=== PATIENT | female | born 1995 | race Hispanic/Latino ===

== ENCOUNTER 2020-03-15 11:45 | Emergency (ER) | payer BC ==
--- NOTE | 2020-03-15 12:08 | Event Note ---
ED Screening Note Date of service: 03/15/20 Time: 12:06 ED Screening Note: 25-year-old female presents to the emergency room stating she has nausea vomiting abdominal pain and vaginal bleeding. Patient states she thinks she was . She reports that she did not have any vaginal bleeding. This initial assessment/diagnostic orders/clinical plan/treatment(s) is/are subject to change based on patients health status, clinical progression and re- assessment by fellow clinical providers in the ED. Further treatment and workup at subsequent clinical providers discretion. Patient/guardian urged not to elope from the ED as their condition may be serious if not clinically assessed and managed. Initial orders include:
[2020-03-15 12:10] VITALS: BP 97/60
[2020-03-15] MEDS ORDERED: ONDANSETRON 4 MG ODT TAB ONE (12:10)
[2020-03-15] MEDS ORDERED: ONDANSETRON 4 MG ODT TAB PO ONE (12:12)
--- NOTE | 2020-03-15 13:07 | Emergency Department Report ---
ED Female HPI - General Chief complaint: Nausea/Vomiting/Diarrhea Stated complaint: NAUSEA,VOMITING Time Seen by Provider: 03/15/20 12:57 Source: patient Mode of arrival: Wheelchair Limitations: No Limitations - History of Present Illness Initial comments: 25-year-old female presents emerged department complaining of nausea and vomiting for 4 days with vaginal bleeding and suprapubic pain after being 6 weeks late. States that her symptoms started about 6 6 days ago and the bleeding was a bright color and then progressed to a much darker color as sociated with fever pains and cramps. She reports no fever, chills or sweats but has been feeling more weak and and fatigue and is worried she has some retained products in her pelvic area which may be causing an infection. 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 denies: dysuria, shortness of breath, syncope, weakness - Related Data Previous Rx's Medication Instructions Recorded Last Taken Type Doxylamine Succinate/Vit B6 1 each PO TID #20 tablet. 03/15/20 Unknown Rx [Troys 10-10 mg Tablet] ED Review of Systems ROS: Stated complaint: NAUSEA,VOMITING Other details as noted in HPI Comment: All other systems reviewed and negative ED Past Medical Hx - Social History Smoking Status: Heavy Tobacco Smoker Substance Use Type: Marijuana - Medications Home Medications: Home Medications Medication Instructions Recorded Confirmed Last Taken Type Doxylamine Succinate/Vit B6 1 each PO TID #20 tablet. 03/15/20 Unknown Rx [Diclegis Dr 10-10 mg Tablet] ED Physical Exam - General Limitations: No Limitations General appearance: alert, in no apparent distress - Head Head exam: Present: atraumatic, normocephalic - Eye Eye exam: Present: normal appearance, PERRL, EOMI Pupils: Present: normal accommodation - ENT ENT exam: Present: normal exam, normal orophraynx, mucous membranes moist, TM's normal bilaterally - Neck Neck exam: Present: normal inspection, full ROM - Respiratory Respiratory exam: Present: normal lung sounds bilaterally. Absent: respiratory distress, wheezes, rales, chest wall tenderness, accessory muscle use, decreased breath sounds - Cardiovascular Cardiovascular Exam: Present: regular rate, normal rhythm. Absent: systolic murmur, diastolic murmur, rubs, gallop - GI/Abdominal GI/Abdominal exam: Present: soft, normal bowel sounds - Extremities Exam Extremities exam: Present: normal inspection - Back Exam Back exam: Present: normal inspection - Neurological Exam Neurological exam: Present: alert, oriented X3 - Psychiatric Psychiatric exam: Present: normal affect, normal mood - Skin Skin exam: Present: warm, dry, intact, normal color. Absent: rash ED Course Vital Signs 03/15/20 12:05 Temperature 98.2 F Pulse Rate 61 Respiratory 18 Rate Blood Pressure 97/60 O2 Sat by Pulse 97 Oximetry ED Medical Decision Making - Lab Data Result diagrams: 03/15/20 12:32 03/15/20 12:32 - Radiology Data Radiology results: report reviewed [address] [address] Ultrasound Report Signed Patient: ANAIS DICK MR#: [id number] : 1995 Acct:[id number] Age/Sex: 25 / F ADM Date: 03/15/20 Loc: ED Attending Dr: Ordering Physician: SHAHIDA LENTZ Date of Service: 03/15/20 Procedure(s): US OB transvaginal Accession Number(s): [id number] cc: SHAHIDA LENTZ US OB transvaginal INDICATION / CLINICAL INFORMATION: pelvic pain and . TECHNIQUE: Transabdominal and Transvaginal. Color flow was performed. COMPARISON: None available. FINDINGS: UTERUS: Appears within normal limits. GESTATIONAL SAC: Well-defined oval shape and intrauterine in location. YOLK SAC: No significant abnormality. EMBRYO/FETUS: - [place]-Rump Length = 1.4 cm = 7 weeks 5 days. - Heart Rate, beats per minute (if present) = 157 beats per minute ADNEXA: No significant abnormality. FREE FLUID: None. ADDITIONAL FINDINGS: None. IMPRESSION: 1. Single, living intrauterine with estimated sonographic age of 7 weeks 5 days. Signer Name: Lincoln Mays MD Signed: 03/15/2020 2:18 PM Workstation Name: [id number] Transcribed By: CS Dictated By: Lincoln Mays MD Electronically Authenticated By: Lincoln Mays MD Signed Date/Time: 03/15/201417 DD/ 141 - Medical Decision Making My vaginal bleeding patient presents to the emergency department with nausea, vomiting, diarrhea, differential diagnosis includes possible acute gastroenteritis. Abdominal ex amination without peritoneal signs. Currently patient is euvolemic without evidence of dehydration. No evidence of surgical abdomen or other acute medical emergency including bowel obstruction, viscus perforation, vascular catastrophe, appendicitis, cholecystitis at this time. Presentation not consistent with other acute emergent causes of vomiting and diarrhea at this time. No indication for abdominal imaging this patient presents with vaginal bleeding in the first trimester, differential diagnosis includes ectopic , IUP, month threatened/inevitable , along with a completed . Patient is HDS and without a history of coagulopathy or infectious symptoms. The ultrasound does reveal an IUP at 7 weeks with an elevated hCG quant Based on exam history and ED work-up patient presentation is not consistent with an ectopic , life-threatening coagulopathy, trauma, serious bacterial infection, central process or other emergency Plan and on IV normal saline due to her history and presentation of being slightly hypotensive with blood pressures in the 90s over the 60s although there was no tachycardic response and she was appear to be hemodynamically stable on examination. Critical care attestation.: If time is entered above; I have spent that time in minutes in the direct care of this critically ill patient, excluding procedure time. ED Disposition Clinical Impression: Vaginal bleeding during , Vomiting affecting Disposition: DC-01 TO HOME OR SELFCARE Is pt being admited?: No Does the pt Need Aspirin: No Condition: Stable Instructions: Nausea and Vomiting, Adult, Activity Restriction During , Hyperemesis Gravidarum, Vaginal Bleeding During , First Trimester Prescriptions: Doxylamine Succinate/Vit B6 [Sebastian Ryan 10-10 mg Tablet] 1 each PO TID #20 tablet. Referrals: PRIMARY CARE, [Primary Care Provider] - 3-5 Days [facility] [Provider Group] - 3-5 Days
[2020-03-15 13:27] LABS: Bilirubin,Urine NEG (Negative); Blood,Urine SM (Negative); Color,Urine Yellow (Yellow); Mucus,Urine 3+ /HPF; Urobilinogen,Urine < 2.0 mg/dL (<2.0)
[2020-03-15 13:34] LABS: Basophils # (Auto) 0.1 K/mm3 (0.0-0.1); Basophils % (Auto) 0.6 % (0.0-1.8); Eosinophils % (Auto) 0.3 % (0.0-4.3); Hematocrit 41.8 % (30.3-42.9); Hemoglobin 14.1 gm/dl (10.1-14.3); Lymphocytes # (Auto) 2.1 K/mm3 (1.2-5.4); Lymphocytes % (Auto) 19.9 % (13.4-35.0); Mean Corpuscular HGB Conc 34 % (30-34); Mean Corpuscular Volume 90 fl (79-97); Monocytes # (Auto) 0.5 K/mm3 (0.0-0.8); Monocytes % (Auto) 5.2 % (0.0-7.3); Platelet Count 311 K/mm3 (140-440); Red Blood Count 4.64 M/mm3 (3.65-5.03)
[2020-03-15 13:37] LABS: Protein,Urine <30 mg dL mg/dL (Negative)
[2020-03-15 13:48] LABS: Alanine Aminotransferase 13 units/L (7-56); Albumin 4.7 g/dL (3.9-5); BUN/Creatinine Ratio 11; Blood Urea Nitrogen 8 mg/dL (7-17); Calcium 9.9 mg/dL (8.4-10.2); Hemolysis Index 7
--- NOTE | 2020-03-15 14:22 | Ultrasound Report ---
US OB <= 14 weeks fetus INDICATION / CLINICAL INFORMATION: Vaginal bleeding pain. TECHNIQUE: Transabdominal and Transvaginal. Color flow was performed. COMPARISON: None available. FINDINGS: UTERUS: Appears within normal limits. GESTATIONAL SAC: Well-defined oval shape and intrauterine in location. YOLK SAC: No significant abnormality. EMBRYO/FETUS: - [place]-Rump Length = 1.4 cm = 7 weeks 5 days. - Heart Rate, beats per minute (if present) = 157 beats per minute ADNEXA: No significant abnormality. FREE FLUID: None. ADDITIONAL FINDINGS: None. IMPRESSION: 1. Single, living intrauterine with estimated sonographic age of 7 weeks 5 days. Signer Name: Lincoln Mays MD Signed: 03/15/2020 2:18 PM Workstation Name: [email or web address]
--- NOTE | 2020-03-15 14:22 | Ultrasound Report ---
US OB transvaginal INDICATION / CLINICAL INFORMATION: pelvic pain and . TECHNIQUE: Transabdominal and Transvaginal. Color flow was performed. COMPARISON: None available. FINDINGS: UTERUS: Appears within normal limits. GESTATIONAL SAC: Well-defined oval shape and intrauterine in location. YOLK SAC: No significant abnormality. EMBRYO/FETUS: - [place]-Rump Length = 1.4 cm = 7 weeks 5 days. - Heart Rate, beats per minute (if present) = 157 beats per minute ADNEXA: No significant abnormality. FREE FLUID: None. ADDITIONAL FINDINGS: None. IMPRESSION: 1. Single, living intrauterine with estimated sonographic age of 7 weeks 5 days. Signer Name: Lincoln Mays MD Signed: 03/15/2020 2:18 PM Workstation Name: [id number]
== END 2020-03-15 16:20 | disposition home or self-care (01) ==
LOC: ED 11:45
DX: O46.91 Antepartum hemorrhage, unspecified, first trimester (principal); O21.8 Other vomiting complicating pregnancy; Z3A.01 Less than 8 weeks gestation of pregnancy; O99.331 Smoking (tobacco) complicating pregnancy, first trimester; Z79.899 Other long term (current) drug therapy
CPT/HCPCS: 36415; 76801; 76817; 80053; 81001; 83690; 84702; 85025; Q0162